=== PATIENT | female | born 1965 | race Caucasian/White ===

== ENCOUNTER → 2023-04-22 11:28 | Outpatient (BNVA) | payer OTHER, SELFPAY | PROVIDERS: PCP Registered Nurse; Visit Provider Registered Nurse | DX: R42 Dizziness and giddiness (principal); E55.9 Vitamin D deficiency, unspecified; E53.8 Deficiency of other specified B group vitamins; E78.5 Hyperlipidemia, unspecified | CPT/HCPCS: 80053; 80061; 82306; 82607; 85025 ==

== ENCOUNTER 2023-05-04 13:26 | Outpatient (CLI) | payer OTHER, SELFPAY ==
--- NOTE | 2023-05-04 13:15 | USCV_ITS ---
Arelis Montaño Age: 58 Gender: F : 1965 Exam Date: 05/04/2023 13:49 Ordering Phys: Zev ReddyP Technologist: PATRICIA [place]am [place] [facility] [place]: DIZZINESS Risk Factors: Previous Vascular Surgery: Right Brachial BP: / Left Brachial BP: / Right Left Velocity (cm/s) Spectral Plaque Velocity (cm/s) Spectral Plaque Syst/Diast Broadening Syst/Diast Broadening 91.70/ 27.20 Prox CCA 114.50/ 28.90 82.30/ 27.20 Mid CCA 99.50 / 33.20 91.70/ 27.20 Distal CCA 92.10 / 32.10 87.00/ 25.60 Prox ICA 62.80 / 21.60 65.90/ 26.50 Mid ICA 56.10 / 19.90 60.50/ 27.50 Distal ICA 88.65 / 32.75 98.70 ECA 80.00 0.95 ICA/CCA 0.74 Antegrade Vertebral Antegrade 40.40/ 13.20 cm/s 50.40/ 17.70 cm/s Tri Subclavian Tri 166.2 203.3 0 0 FINDINGS Comparison: none available. No significant elevation of systolic or diastolic velocities. Waveforms are normal. No significant amount of calcified plaque or intimal thickening identified. Antegrade vertebral arteries. CONCLUSIONS Normal carotid doppler ultrasound. Dr. Nanyc Moscoso DO (Electronically Signed) Final Date: 04 May 2023 14:50 S
== END 2023-05-04 13:27 | disposition home or self-care (01) ==
PROVIDERS: PCP Registered Nurse; Visit Provider Registered Nurse
DX: R42 Dizziness and giddiness (principal)
CPT/HCPCS: 93880